=== PATIENT | male | born 1945 | race American Indian/Alaskan Native ===

== ENCOUNTER 2020-11-22 10:12 | Outpatient (CLI) | payer MEDICAID, MEDICARE ==
[2020-11-22] MEDS ORDERED: LIDOCAINE (4%) 40 MG/ML TOPICAL SOLN 50 ML BOTTLE TP ONE (10:41)
== END 2020-11-22 10:13 | disposition home or self-care (01) ==
LOC: WOUND 10:12
PROVIDERS: ATTEND Surgery
DX: S81.802A Unspecified open wound, left lower leg, initial encounter (principal); L97.224 Non-pressure chronic ulcer of left calf with necrosis of bone; Z87.891 Personal history of nicotine dependence; W22.8XXA Striking against or struck by other objects, initial encounter; Y93.89 Activity, other specified; Y92.89 Other specified places as the place of occurrence of the external cause; Y99.8 Other external cause status
CPT/HCPCS: 99205; 99215; G0463

== ENCOUNTER 2020-12-25 08:14 | Outpatient (CLI) | payer MEDICARE ==
[2020-12-25] MEDS ORDERED: LIDOCAINE (4%) 40 MG/ML TOPICAL SOLN 50 ML BOTTLE TP ONE (08:27)
== END 2020-12-25 08:15 | disposition home or self-care (01) ==
LOC: WOUND 08:14
PROVIDERS: ATTEND Surgery
DX: S81.802D Unspecified open wound, left lower leg, subsequent encounter (principal); L97.224 Non-pressure chronic ulcer of left calf with necrosis of bone; Z87.891 Personal history of nicotine dependence; W22.8XXD Striking against or struck by other objects, subsequent encounter

== ENCOUNTER 2021-01-03 11:06 | Outpatient (CLI) | payer MEDICARE ==
[2021-01-03] MEDS ORDERED: LIDOCAINE (4%) 40 MG/ML TOPICAL SOLN 50 ML BOTTLE TP ONE (14:09)
== END 2021-01-03 11:07 | disposition home or self-care (01) ==
LOC: WOUND 11:06
PROVIDERS: ATTEND Surgery
DX: S81.802D Unspecified open wound, left lower leg, subsequent encounter (principal); L97.224 Non-pressure chronic ulcer of left calf with necrosis of bone; Z87.891 Personal history of nicotine dependence; W22.8XXD Striking against or struck by other objects, subsequent encounter

== ENCOUNTER 2021-02-08 12:43 | Outpatient (CLI) | payer MEDICARE ==
--- NOTE | 2021-02-08 15:00 | Cat Scan Report ---
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 TECHNIQUE: All CT scans at this location are performed using CT dose reduction for ALARA by means of automated exposure control. Axial CT images were obtained through the left lower extremity from the m id thigh to the distal lower leg. Coronal and sagittal 2-D reconstruction images were produced. 100 m L Omnipaque 300 injected IV. COMPARISON: None available. FINDINGS: BONES: No acute fracture. Old, healed fractures of the proximal left tibial and fibular shafts. There are 2 chronic appearing defects in the anterior tibia at the site of the old fracture with extensive sclerosis and communication with the skin likely representing chronic osteomyelitis. No definite acu te osseous destruction is noted. MUSCLES / TENDONS: Atrophy of the left calf muscles likely secondary to disuse. SOFT TISSUES: Chronic appearing soft tissue defects of the anterior proximal tibia with extension to bone. Moderate skin thickening surrounding the defects. No soft tissue fluid collection. 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 ADDITIONAL FINDINGS: None. IMPRESSION: 1. 2 chronic appearing soft tissue defects of the anterior tibia at the site of old fracture. Soft ti ssue defects extend the bone where there is extensive sclerosis likely representing chronic osteomyel itis. 2. No definite acute osteomyelitis or soft tissue abscess. Signer Name: Palak Mcmahon MD Signed: 02/08/2021 2:55 PM Workstation Name: [id number]
== END 2021-02-08 12:44 | disposition home or self-care (01) ==
LOC: CT 12:43
PROVIDERS: ATTEND Surgery
DX: L97.224 Non-pressure chronic ulcer of left calf with necrosis of bone (principal); M17.12 Unilateral primary osteoarthritis, left knee; M25.462 Effusion, left knee
CPT/HCPCS: 73701; Q9967

== ENCOUNTER 2021-02-14 13:58 | Outpatient (CLI) | payer MEDICARE | END 2021-02-14 13:59 | disposition home or self-care (01) | LOC: WOUND 13:58 | PROVIDERS: ATTEND Surgery | DX: S81.802D Unspecified open wound, left lower leg, subsequent encounter (principal); L97.224 Non-pressure chronic ulcer of left calf with necrosis of bone; Z87.891 Personal history of nicotine dependence; W22.8XXD Striking against or struck by other objects, subsequent encounter | CPT/HCPCS: 99214; G0463 ==

== ENCOUNTER 2021-08-15 08:03 | Outpatient (CLI) | payer MEDICARE ==
[2021-08-15] MEDS ORDERED: LIDOCAINE (4%) 40 MG/ML TOPICAL SOLN 50 ML BOTTLE TP ONE (08:42)
== END 2021-08-15 08:04 | disposition home or self-care (01) ==
LOC: WOUND 08:03
PROVIDERS: ATTEND Surgery
DX: S81.802D Unspecified open wound, left lower leg, subsequent encounter (principal); L97.224 Non-pressure chronic ulcer of left calf with necrosis of bone; Z87.891 Personal history of nicotine dependence; W22.8XXD Striking against or struck by other objects, subsequent encounter